=== PATIENT | male | born 1955 | race Asian ===

== ENCOUNTER 2016-04-28 08:35 | Emergency (ER) | payer MEDICARE, OTHER ==
[~2016-04-28] VITALS: Ht 165.1 cm; Wt 78.9 kg
[~2016-04-28 08:35] MED LIST: ALLO300T2; ASPI-650; CYCL100C8; CYCL25CA5; DILT240C79; METO-53; MYCO250C6; PRED-253; SMV40T
[2016-04-28 08:38] VITALS: Ht 165.1 cm; Wt 78.9 kg
[2016-04-28] MEDS ORDERED: LEVEM SC (10:46)
[2016-04-28] MEDS ORDERED: ALBU18HF INHALATION (10:47)
[2016-04-28] MEDS ORDERED: ADV25050 INHALATION (10:47)
[2016-04-28] MEDS ORDERED: SAN100 PO (10:48)
[2016-04-28] MEDS ORDERED: DILT240C79 PO (10:49)
[2016-04-28] MEDS ORDERED: CLON-379 PO (10:49)
[2016-04-28] MEDS ORDERED: ASPI-664 PO (10:50)
[2016-04-28] MEDS ORDERED: SIMV40TA2 PO (10:50)
[2016-04-28] MEDS ORDERED: MYCO250C3 PO (10:51)
[2016-04-28] MEDS ORDERED: ACET250T22 PO (10:51)
[2016-04-28] MEDS ORDERED: ALLO300T2 PO (10:52)
[2016-04-28] MEDS ORDERED: PRED5 PO (10:52)
[2016-04-28] MEDS ORDERED: CARV6.2579 PO (10:52)
[2016-04-28] MEDS ORDERED: OMEP40CA6 PO (10:53)
[2016-04-28] MEDS ORDERED: KETOROLAC 15 MG INJ IV STA (11:13)
[2016-04-28] MEDS ORDERED: NITROGLYCERIN (SL) 0.4 MG TAB SL ONE (11:30)
[2016-04-28] MEDS ORDERED: ASPIRIN 325 MG TAB PO ONE (11:30)
[2016-04-28 11:34] LABS: ADD SCAN DIFF NO
[2016-04-28 11:39] LABS: BASOPHIL # 0.1 10^3/ul (0.0-0.1); BASOPHILS % 0.7 % (0.0-2.0); EOSINOPHILS # 0.6 10^3/ul (0.0-0.5); EOSINOPHILS % 7.9 % (0.0-7.0); HEMATOCRIT 51.3 % (42.0-52.0); HEMOGLOBIN 15.5 g/dl (14.0-18.0); LYMPHOCYTES # 1.3 10^3/ul (0.8-2.9); LYMPHOCYTES % 18.1 % (15.0-51.0); MEAN CORPUSCULAR HGB CONC 30.2 g/dl (32.0-37.0); MEAN CORPUSCULAR VOLUME 105.8 fl (82.0-101.0); MEAN PLATELET VOLUME 11.9 fl (7.4-10.4); MONOCYTE # 0.6 10^3/ul (0.3-0.9); MONOCYTES % 7.7 % (0.0-11.0); NEUTROPHIL # 4.7 10^3/ul (1.6-7.5); NEUTROPHILS % 65.3 % (39.0-77.0); PLATELET COUNT 181 10^3/UL (140-415); RED BLOOD COUNT 4.85 10^6/ul (4.70-6.10); RED CELL DISTRIBUTION WIDTH 15.6 % (11.5-14.5); WHITE BLOOD COUNT 7.2 10^3/ul (4.8-10.8)
--- NOTE | 2016-04-28 11:53 | RADRPT ---
PROCEDURE: XR Chest. CLINICAL INDICATION: Left upper extremity pain and abdomen pain. TECHNIQUE: Single frontal view. COMPARISON: None. FINDINGS: There is mild interstitial disease bilaterally which may be acute or chronic. The lungs are otherwi se clear. The heart is enlarged. There is calcification in the aorta consistent with atherosclerosis. There is no pleural effusion. There is no pneumothorax. IMPRESSION: 1. Mild bilateral interstitial pulmonary disease which may be acute or chronic. Clinical correlati on is advised. 2. Cardiomegaly and atherosclerosis. RPTAT: QQ .Luis Miguel Kaur MD, MD Date Time Electronically viewed and signed by .Luis Miguel Kaur MD, MD on 04/28/2016 11:53 .R/
[2016-04-28 11:54] LABS: ALBUMIN 3.4 g/dl (3.3-4.9); CHLORIDE 96 mmol/L (97-110); POTASSIUM 4.5 mmol/L (3.5-5.1); SODIUM 139 mmol/L (135-144)
[2016-04-28 11:56] LABS: ALBUMIN/GLOBULIN RATIO 0.85; ANION GAP 13 (8-16); ASPARTATE AMINO TRANSFERASE 30 IU/L (15-46); BILIRUBIN,INDIRECT 0.8 mg/dl (0-1.1); BILIRUBIN,TOTAL 0.8 mg/dl (0.2-1.3); CARBON DIOXIDE 35 mmol/L (21-31); CREATININE 1.28 mg/dl (0.61-1.24); TOTAL PROTEIN 7.4 g/dl (6.1-8.1)
[2016-04-28 11:57] LABS: ALANINE AMINOTRANSFERASE 23 IU/L (13-69); ALKALINE PHOSPHATASE 94 IU/L (42-121); BLOOD UREA NITROGEN 21 mg/dl (7-20); CALCIUM 9.7 mg/dl (8.4-10.2); GLUCOSE 126 mg/dl (70-220)
[2016-04-28 12:06] LABS: B-TYPE NATRIURETIC PEPTIDE 141 PG/ML (0-125)
[2016-04-28 12:37] LABS: TROPONIN-I < 0.012 ng/ml (0.00-0.12)
[2016-04-28] MEDS ORDERED: TRAM50TA2 PO (13:02)
--- NOTE | 2016-04-28 13:27 | ERA ---
ER Documentation Chief Complaint Date/Time DATE: 04/28/16 TIME: 13:25 Chief Complaint LEFT ARM PAIN X 1 WEEK HPI 60-year-old man complains of recent peripheral edema and intermittent shortness of breath with sharp nonexertional nonradiating chest pain. His main issue is with his left arm he has pain to the left arm no paresthesias, no pressure in the arm, no swelling. His swelling has been bilateral in the lower extremities , no fevers or chills, no loss of consciousness, no headache or blurry vision, no weakness in his arms or legs. ROS All systems reviewed and are negative except as per history of present illness. Medications Home Meds Active Scripts Tramadol HCl (Tramadol HCl) 50 Mg Tablet, 50 MG PO TID for PAIN, #15 TAB Prov:MARSHA BOLTON MD 04/28/16 Reported Medications Omeprazole* (Omeprazole*) 40 Mg Capsule., 40 MG PO DAILY, #30 CAP 04/28/16 Carvedilol* (Carvedilol*) 6.25 Mg Tablet, 6.25 MG PO BID, #60 TAB 04/28/16 Prednisone* (Prednisone*) 5 Mg Tab, 5 MG PO DAILY, TAB 04/28/16 Allopurinol* (Allopurinol*) 300 Mg Tablet, 300 MG PO DAILY, TAB 04/28/16 Acetazolamide* (Acetazolamide*) 250 Mg Tablet, 250 MG PO BID, #60 TAB 04/28/16 Mycophenolate Mofetil* (Cellcept*) 250 Mg Capsule, 250 MG PO BID, CAP 04/28/16 Aspirin (Low Dose Aspirin) 81 Mg Tablet., 81 MG PO DAILY, #30 TAB 04/28/16 Simvastatin* (Zocor*) 40 Mg Tablet, 40 MG PO QHS, #30 TAB 04/28/16 Clonidine Hcl* (Clonidine Hcl*) 0.1 Mg Tab, 0.1 MG PO Q8 Y for ELEVATED BLOOD PRESSURE, TAB 04/28/16 Diltiazem Hcl* (Cardizem CD*) 240 Mg Cap.sr.24h, 240 MG PO DAILY, #30 CAP 04/28/16 Cyclosporine* (Sandimmune*) 100 Mg Cap, 100 MG PO BID, CAP 04/28/16 Salmeterol Xinaf/Fluticasone* (Advair*) 250-50 Diskus Inhaler, 1 INH INHALATION BID, #1 INHALER 04/28/16 Albuterol Sulfate* (Ventolin HFA*) 18 Gm Hfa.aer.ad, 2 PUFF INHALATION Q6H, #1 INHALER 04/28/16 Insulin Detemir (Levemir) 100 Unit/1 Ml Vial, 60 UNIT SC QAM, VIAL 04/28/16 Discontinued Reported Medications Mycophenolate Mofetil (Cellcept) 250 Mg Capsule 10/10/09 Aspirin (Aspirin) 81 Mg Tablet 10/10/09 Simvastatin (Simvastatin) 40 Mg Tablet 10/10/09 Metoprolol (Lopressor) 50 Mg Tablet 10/10/09 Allopurinol* (Allopurinol*) 300 Mg Tablet 10/10/09 Diltiazem Hcl* (Cardizem CD*) 240 Mg Cap.sr.24h 10/10/09 Prednisone (Prednisone) 5 Mg Tablet 10/10/09 Cyclosporine (Cyclosporine) 25 Mg Capsule 10/10/09 Cyclosporine (Cyclosporine) 100 Mg Capsule 10/10/09 Allergies Allergies: Coded Allergies: No Known Allergy (Unverified , 04/28/16) PMhx/Soc Cadaveric renal transplant, chronic kidney injury, hypertension, anemia, previous peripheral edema, diabetes mellitus, no history of myocardial infarction History of Surgery: Yes (KIDNEY TRANSPLANT 21YRS AGO ,[place]) Anesthesia Reaction: No Hx Neurological Disorder: No Hx Respiratory Disorders: No Hx Cardiac Disorders: Yes (HTN, DM, COPD, Sleep Apnea) Hx Psychiatric Problems: No Hx Miscellaneous Medical Probl: No Hx Alcohol Use: No Hx Substance Use: No Hx Tobacco Use: No Smoking Status: Never smoker FmHx Family History: No diabetes Physical Exam Vitals Vital Signs Date Time Temp Pulse Resp B/P Pulse Ox O2 Delivery O2 Flow Rate FiO2 04/28/16 13:31 98.1 68 18 152/72 98 Nasal Cannula 2.0 04/28/16 13:24 98.4 78 18 152/74 98 2.0 04/28/16 12:00 67 21 135/70 95 2.0 04/28/16 10:30 Nasal Cannula 2 04/28/16 10:30 97.6 65 16 155/90 98 2.0 04/28/16 08:38 98.1 71 18 157/81 99 Physical Exam GENERAL: Well-developed, well-nourished, well-hydrated, in no apparent distress , looks nontoxic in appearance HEENT: Moist mucous membranes, pink conjunctiva, no cervical spine tenderness or step-off deformities, no goiter, no jaundice or icterus, extraocular movements intact without pain. No submandibular induration, and no pharyngeal erythema NEURO: Alert and oriented 3, cranial nerves II through XII intact bilaterally, pupils equal round reactive to light, no focal deficits or facial asymmetry, sensation intact distally Strength 5/5 in upper and lower extremities bilaterally CARDIAC: Regular rate and rhythm, no murmurs rubs or gallops LUNGS: Clear bilaterally no wheezing crackles or stridor ABDOMEN: Soft nontender, no guarding, no rigidity, no rebound, no psoas sign no obturator sign. Normoactive bowel sounds SKIN: Warm and dry to touch, no abrasions, contusions, or hematomas, no lacerations, no ecchymosis, no target lesions, and without ulcers EXTREMITIES: No clubbing cyanosis, bilateral lower extremity 2+ pitting edema, calves are bilaterally symmetrical, no Homans sign, no popliteal cord sign. Distal pulses equal and bilateral PSYCH: Normal affect without agitation or irritability Result Diagram: 04/28/16 1030 04/28/16 1030 Results 24 hrs Laboratory Tests Test 04/28/16 10:30 Alanine Aminotransferase (ALT/SGPT) 23IU/L Albumin 3.4g/dl Albumin/Globulin Ratio 0.85 Alkaline Phosphatase 94IU/L Anion Gap 13 Aspartate Amino Transf (AST/SGOT) 30IU/L B-Type Natriuretic Peptide 141PG/ML Basophils # 0.110^3/ul Basophils % 0.7% Blood Urea Nitrogen 21mg/dl Calcium Level 9.7mg/dl Carbon Dioxide Level 35mmol/L Chloride Level 96mmol/L Creatinine 1.28mg/dl Direct Bilirubin 0.00mg/dl Eosinophils # 0.610^3/ul Eosinophils % 7.9% Globulin 4.00g/dl Glucose Level 126mg/dl Hematocrit 51.3% Hemoglobin 15.5g/dl Indirect Bilirubin 0.8mg/dl Lipase 67U/L Lymphocytes # 1.310^3/ul Lymphocytes % 18.1% Mean Corpuscular Hemoglobin 32.0pg Mean Corpuscular Hemoglobin Concent 30.2g/dl Mean Corpuscular Volume 105.8fl Mean Platelet Volume 11.9fl Monocytes # 0.610^3/ul Monocytes % 7.7% Neutrophils # 4.710^3/ul Neutrophils % 65.3% Nucleated Red Blood Cells # 0.010^3/ul Nucleated Red Blood Cells % 0.0/100WBC Platelet Count 36240^3/UL Potassium Level 4.5mmol/L Red Blood Count 4.8510^6/ul Red Cell Distribution Width 15.6% Sodium Level 139mmol/L Total Bilirubin 0.8mg/dl Total Protein 7.4g/dl Troponin I < 0.012ng/ml White Blood Count 7.210^3/ul Current Medications Medications (Trade) Dose Ordered Sig/Talon Route PRN Reason Start Time Stop Time Status Last Admin Dose Admin Ketorolac Tromethamine (Toradol) 15 mg ONCE STAT IV 04/28/16 11:13 04/28/16 11:15 DC 04/28/16 11:24 Aspirin (Aspirin) 325 mg ONCE ONCE PO 04/28/16 11:30 04/28/16 11:31 DC 04/28/16 11:24 Nitroglycerin (Nitroglycerin (Sl Tab) 0.4 Mg) 1 tab ONCE ONCE SL 04/28/16 11:30 04/28/16 11:31 DC 04/28/16 11:24 Procedures/MDM IV line was established patient was placed on cardiac monitor technician rhythm strip revealed a sinus rhythm at about 70 bpm with upright P and T waves. Patient was afebrile. One AP view of the chest performed, read by me reveals no acute infiltrates, normal mediastinum, sharp costophrenic and cardiac borders, no air under the diaphragm. Otherwise unremarkable chest x-ray. EKG performed, read by me: 60 bpm, normal sinus rhythm, normal axis, no acute ST segment changes, narrow QRS complex, with good R-wave progression in precordial leads. CBC was unremarkable, electrolytes revealed acute kidney injury with a BUN/ creatinine of 21/1.3, liver function tests were normal, troponin was negative, BNP was low I administered aspirin 325 mg p.o., nitroglycerin 0.4 mg sublingual, and Toradol 15 mg IV with good effect. Patient was initially hypertensive although after medications were administered blood pressure fell to within normal limits. Differential diagnoses considered, included but not limited to acute coronary syndrome, pulmonary embolism, aortic dissection, abdominal aortic aneurysm, sepsis, stroke, meningitis, encephalitis, pneumonia, appendicitis, cholecystitis , bowel obstruction, pyelonephritis, nephrolithiasis, cystitis, as well as metabolic, hematologic, and electrolyte abnormalities. As well as abscess, cellulitis, fractures, and dislocations. Patient feels much better at this time, and vital signs are normal, symptoms have improved. I did give strict instructions to return to the ED if symptoms continue or worsen, patient will otherwise follow-up with primary care physician. Patient understood instructions and agreed to plan. Departure Diagnosis: Primary Impression: Pain of left arm Additional Impressions: Peripheral edema Hypertension Qualified Code: I10 - Essential hypertension Condition: Good Patient Instructions: Peripheral Edema, Bilateral MARSHA BOLTON MD Apr 28, 2016 13:26
[2016-04-28 13:31] VITALS: BP 152/72; PULSE 68; RESP 18; TEMP 98.1
== END 2016-04-28 13:23 | disposition home or self-care (01) ==
LOC: FTE 08:35 → E/R 13:23
DX: M79.602 Pain in left arm (principal); R60.0 Localized edema; I12.9 Hypertensive chronic kidney disease with stage 1 through stage 4 chronic kidney disease, or unspecified chronic kidney disease; N18.9 Chronic kidney disease, unspecified; E11.9 Type 2 diabetes mellitus without complications; J44.9 Chronic obstructive pulmonary disease, unspecified; Z79.82 Long term (current) use of aspirin; Z79.4 Long term (current) use of insulin
CPT/HCPCS: 36415; 71010; 80053; 83690; 83880; 84484; 85025; 96374; 99285; J1885